=== PATIENT | female | born 1980 | race Caucasian/White ===

== ENCOUNTER → 2016-08-01 | Day surgery (SDC) | payer OTHER ==
[2016-07-21 15:36] VITALS: BMI 31.0
[~2016-08-01] VITALS: Ht 152.4 cm; Wt 72.7 kg
[~2016-08-01] MED LIST: BCPILLS PO; LIDOCAINE HCL 2% 2 ML VIAL (20MG/ML) ONE; PROPOFOL IV EMULSION 10 MG/ML 20 ML VIAL IV ONE; PSYL48.59 PO; SODIUM CHLORIDE 0.9% 500ML 500 ML IV ONE
[2016-08-01 08:41] VITALS: Ht 152.4 cm; Wt 72.7 kg
--- NOTE | 2016-08-01 09:45 | Endo History and Physical ---
History & Physical Date of Service: Aug 01, 2016. Chief Complaint: CHANGE IN BOWEL HABITS, ABD PAIN Referring Physician: DR. THOMPSON History of Present Illness 36 yo CF who presents for colonoscopy secondary to change in bowel habits and abdominal pain. Past Surgical History Hx Cardiac Surgery: No Hx Internal Defibrillator: No Hx Pacemaker: No Hx Abdominal Surgery: No Hx of Implantable Prosthesis: No Hx Post-Op Nausea and Vomiting: No Hx Cancer Surgery: No Hx Thoracic Surgery: No Hx Orthopedic: No Hx Urinary Tract Surgery: No Family History None Social History Smoking Status: Never Smoker Hx Substance Use: No Hx Alcohol Use: Yes (OCCASSIONALLY) Allergies Coded Allergies: Vortioxetine (Verified Allergy, Unknown, ITCHING, 08/01/16) Current Medications Reported Home Medications Medications Dose Route/Sig Max Daily Dose Days Date Category Dose Instructions Metamucil (Psyllium) 48.57 % Pow 1 Dose PO QAM 07/21/16 Reported NEW ORDER Control Pills (Miscellaneous) Tab 1 Tab PO QPM 07/21/16 Reported Vital Signs Weight (Kilograms): 72.73 Height (Feet): 5 Height (Inches): 0 Date Time Temp Pulse Resp B/P Pulse Ox O2 Delivery O2 Flow Rate FiO2 08/01/16 08:50 36.8 86 24 140/81 97 Room Air Physical Exam General Appearance: WD/WN, no apparent distress Respiratory/Chest: Auscultation: breath sounds normal Cardiovascular: Heart Auscultation: RRR Abdomen: Bowel Sounds: normal Inspection & Palpation: soft, non-distended, no tenderness, guarding & rebound Assessment and Plan Assessment: 36 yo CF who presents for colonoscopy secondary to change in bowel habits and abdominal pain. Plan: Proceed with colonoscopy.
--- NOTE | 2016-08-01 10:05 | Discharge Instructions ---
Endoscopy Patient Instructions Date / Procedure(s) Performed Aug 01, 2016. Colonoscopy Allergy Information Coded Allergies: Vortioxetine (Verified Allergy, Unknown, ITCHING, 08/01/16) Discharge Date / Findings Aug 01, 2016. Random colon biopsies Internal hemorrhoids Medication Instructions OK to resume all medications today as prescribed Reported Home Medications Medications Dose Route/Sig Max Daily Dose Days Date Category Dose Instructions Metamucil (Psyllium) 48.57 % Pow 1 Dose PO QAM 07/21/16 Reported NEW ORDER Control Pills (Miscellaneous) Tab 1 Tab PO QPM 07/21/16 Reported Provider Instructions Activity Restrictions - No exercising or heavy lifting for 24 hours. - Do not drink alcohol the day of the procedure. - Do not drive a car or operate machinery until the day after the procedure. - Do not make any important decisions or sign important papers in 24 hours after the procedure. Following Day: - Return to full activity which may include returning to work/school. Diet Start your diet with liquids and light foods (jello, soup, juice, toast). Then eat your usual diet if not nauseated. Treatment For Common After Affects For mild abdominal pain, bloating, or excessive gas: - Rest - Eat lightly - Lie on right side Follow-Up Information Follow-up with DR. THOMPSON as scheduled Anesthesia Information What You Should Know You have had a procedure that required some medicine to reduce anxiety and discomfort. This treatment is called moderate sedation. After receiving the treatment, you may be sleepy, but you will be able to breathe on your own. The effects of the treatment may last for several hours. Follow these instructions along with Activity/Diet recommendations noted above: * Do NOT do anything where dizziness or clumsiness would be dangerous. * Rest quietly at home today, then you can be up and about tomorrow. * Have a responsible person stay with you the rest of today. * You may have had an I.V. today. If so, you may take the dressing off later today. Recommendations Call your doctor if: * Trouble breathing * Continuous vomiting for more than 24 hours * Temperature above 101 degrees * Severe abdominal pain or bloating * Pain not relieved by pain medicine ordered * There is increased drainage or redness from any incision * A large amount of rectal bleeding greater than 2-3 tablespoons. (If you had a polyp/s removed or have hemorrhoids, a small amount of blood - from the rectum is to be expected.) * You have any unanswered questions or concerns. IN THE EVENT OF A SERIOUS EMERGENCY, GO TO THE NEAREST EMERGENCY ROOM Your discharge instructions were prepared by provider Leonard Paredes. Patient Instructions Signature Page Anabel Ruiz Patient (or Guardian) Signature/Date: I have read and understand the instructions given to me by my caregivers. Caregiver/RN/Doctor Signature/Date: The above-named patient and/or guardian has received patient instructions on this date. + Original Patient Signature Page (only) stays with chart. Please make copy for patient.
--- NOTE | 2016-08-01 10:08 | GI REPORT ---
Procedure Date: 08/01/2016 9:14 AM Procedure: Colonoscopy Indications: Generalized abdominal pain, Change in bowel habits Medicines: Monitored Anesthesia Care Complications: No immediate complications. Estimated Blood Loss: Estimated blood loss: none. Procedure: Pre-Anesthesia Assessment: - Prior to the procedure, a History and Physical was performed, and patient medications and allergies were reviewed. The patient's tolerance of previous anesthesia was also reviewed. The risks and benefits of the procedure and the sedation options and risks were discussed with the patient. All questions were answered, and informed consent was obtained. Prior Anticoagulants: The patient has taken no previous anticoagulant or antiplatelet agents. ASA Grade Assessment: II - A patient with mild systemic disease. After reviewing the risks and benefits, the patient was deemed in satisfactory condition to undergo the procedure. After I obtained informed consent, the scope was passed under direct vision. Throughout the procedure, the patient's blood pressure, pulse, and oxygen saturations were monitored continuously. The Scope was introduced through the anus and advanced to the terminal ileum. The colonoscopy was performed without difficulty. The patient tolerated the procedure well. The quality of the bowel preparation was good. The terminal ileum, ileocecal valve, appendiceal orifice, and rectum were photographed. Findings: Non-bleeding internal hemorrhoids were found during retroflexion. The hemorrhoids were small. Several random biopsies were obtained with cold forceps for histology in the entire colon. Impression: - Non-bleeding internal hemorrhoids. - Several random biopsies were obtained in the entire colon. Recommendation: - Resume previous diet. - Continue present medications. - Repeat colonoscopy for surveillance based on pathology results. - Return to primary care physician as previously scheduled. Leonard Paredes, DO 08/01/2016 10:09:11 AM This report has been signed electronically. Note Initiated On: 08/01/2016 9:14 AM
[2016-08-01 10:35] VITALS: BP 150/99; PULSE 80; O2SAT 99
--- NOTE | 2016-08-01 10:52 | Anesthesiology Progress Note ---
Anesthesia Post Op Note Date & Time Aug 01, 2016 at 10:52 Vital Signs Pain Intensity: 0 Vital Signs Past 12 Hours Date Time Temp Pulse Resp B/P Pulse Ox O2 Delivery O2 Flow Rate FiO2 08/01/16 10:35 80 16 150/99 99 Room Air 08/01/16 10:20 84 16 148/91 98 Room Air 08/01/16 10:04 76 16 124/76 97 Room Air 08/01/16 08:50 36.8 86 24 140/81 97 Room Air Notes Mental Status: alert / awake / arousable, participated in evaluation Pt Amnestic to Procedure: Yes Nausea / Vomiting: adequately controlled Pain: adequately controlled Airway Patency, RR, SpO2: stable & adequate BP & HR: stable & adequate Hydration State: stable & adequate Anesthetic Complications: no major complications apparent
== END | disposition home or self-care (01) ==
LOC: C.GI 08:18
PROVIDERS: ATTEND Internal Medicine
DX: R10.84 Generalized abdominal pain (principal); R19.4 Change in bowel habit; K64.8 Other hemorrhoids; Z79.3 Long term (current) use of hormonal contraceptives; Z68.31 Body mass index [BMI] 31.0-31.9, adult; E66.9 Obesity, unspecified

== ENCOUNTER 2024-08-11 08:32 | Observation (INO) ==
--- NOTE | 2024-08-11 09:13 | History & Physical Bridge Note ---
Date of Service August 11, 2024 History & Physical Bridge Note I have examined the patient, reviewed the History & Physical and in the interval since the performance of the History & Physical I have noted the following changes of clinical significance: no changes noted
--- NOTE | 2024-08-11 09:14 | Pre Anesthesia Assessment ---
Date of Service August 11, 2024 Pre Sedation Assessment Vital Signs Temp Pulse Resp BP Pulse Ox O2 Del Method 08/11/24 08:38 98.1 F 75 16 102/76 95 Room Air Cardiovascular + regular rate Respiratory + respiratory effort normal Pre-Sedation Airway Assessment Smoking Status: Never smoker Hx Sleep Apnea: No Short, Thick Neck: No Thyromental Distance: > or= 3.5 Finger Breadths Oral Cavity: + WNL Mallampati Class: II ASA: ASA3 NPO Status Date of Last Intake of Fluids: 08/11/24 Time of Last Intake of Fluids: 07:00 Date of Last Intake of Solid Food: 08/10/24 Time of Last Intake of Solid Foods: 20:00 Procedure Planning Contraindications for Sedation: none Current Medications Reviewed: Yes Notes The planned sedation has been discussed with the patient. Informed Consent was obtained. I have identified the patient, determined the appropriateness of sedation and have assessed the patient immediately prior to the procedure. All medicine(s) and interventions are by my order.
[2024-08-11] MEDS: fentaNYL citrate PF 100 MCG/2 ML VIAL ONE (10:06)
[2024-08-11] MEDS: HEPARIN (PORCINE) 1000 UNIT/ML 10 ML (CATH LAB USE ONLY) ONE (10:06)
[2024-08-11] MEDS: MIDAZOLAM HCL 1 MG/ML 2ML VIAL ONE (10:06)
[2024-08-11] MEDS: OPTIRAY 350 ONE (10:07)
[2024-08-11] MEDS: niCARdipine 2,000 MCG/20 ML SYR ONE (10:08)
[2024-08-11] MEDS: NITROGLYCERIN/D5W 100MCG/ML 20ML SYR ONE (10:09)
--- NOTE | 2024-08-11 10:53 | Post Anesthesia Assessment ---
Date of Service August 11, 2024 Post Sedation Assessment Vital Signs Temp Pulse Resp BP Pulse Ox O2 Del Method 08/11/24 10:45 74 16 113/74 95 Room Air 08/11/24 10:30 78 16 119/75 95 Room Air 08/11/24 10:15 88 16 113/72 95 Room Air 08/11/24 08:38 98.1 F 75 16 102/76 95 Room Air Recovery Score Activity: Moves 4 extremities Respiration: Deep Breath/Cough Circulation: +/-20% PreAnes Value Consciousness: Fully Awake Oxygen Saturation: > 92% On Room Air Post Anesthesia Score: 10 Discharge Sedation Level of Care: Fast Track Phase II Post Sedation Plan On clinical assessment, the patient appears to have tolerated the sedation without complications. Patient is recovering as anticipated. Patient will continue to be monitored by nursing and may be discharged when sedation discharge criteria are met per below protocol. Upon Completions of procedure up to 15 minutes continue every 5 minute vital signs and the P.A.R. score; then discharge to a Phase I or Fast Track to Phase II per the following guidelines: * Discharge Patient to appropriate Phase II area if PAR is 8 or greater or return to pre- procedure baseline. The post - procedure orders will be as di rected. * If PAR score is less than 8 or not return to pre-procedure baseline then patient will follow Phase I monitoring till PAR is reached for Phase II. The Phase I may be done in procedure room or may call to secure a Phase I area. * If naloxone or flumazenil are used for reversal, hold in Phase I for continued monitoring from when last reversal dose was given for a minimum of 60 minutes or longer pending the nurse and/or physician discretion of patient condition before discharge to Phase II. Please call the Sedation Physician to re-evaluate and complete post-note for discharge to Phase II area. Do NOT discharge from procedure sedation or Phase 1 until post- sedation evaluation note is complete by procedure /sedation MD Sedation Discharge Instructions to be given to the patient at discharge to home.
--- NOTE | 2024-08-11 10:56 | Cardiac Catheterization ---
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 30 to 40% late mid stenosis at takeoff of D3. Distal vessel without significant disease is wraps around apex. Small D2 with 50% ostial. Circumflex -medium caliber, diffuse proximal to distal disease up to 90% just prior to OM3. OM3 and left PLB without significant disease. RCA -dominant, large caliber, 60-70% mid RCA, 95% distal stenosis at takeoff of RPDA. 90% ostial stenosis of small to medium RPDA. Large PAV/PLB without significant disease. LVEDP -14 Arterial Closure: TR band Summary: 1. Severe multivessel coronary artery disease -98% mid LAD with ESTELA II distal flow 60-70% mid RCA, 95% distal RCA at takeoff of RPDA. 90% ostial RPDA Diffuse up to 90% proximal to distal circumflex 2. Normal intracardiac filling pressure Recommendations: With severe three-vessel CAD including almost subtotal mid LAD with sluggish distal flow recommend inpatient CABG evaluation. Plan to transfer to [facility] for cardiac surgery evaluation. Hemodynamics Rest Ao:: 95/58 Final Ao: 96/62 LV: 94/14 Recommendations Recommendations: CABG Radiation Exposure (mGy) 625 Contrast (mls) 35 Anesthesia Moderate [id number] Procedural Complication(s) None Disposition Metal Treater Holding/Recovery I attest to the content of the Intraoperative Record and any orders documented therein. Any exceptions are noted below. [facility] Card Cath Procedure Codes Cardiac Catheterization Procedure 1: Cardiovascular Cath Procedures: 30393 Coronaries and LHC (+/-LV) Moderate Sedation Procedure 1: Sedation/Anesthesia: 27870 Mod Sedation by the same physician;Init15 Min Child Age 5 & Up PG Care Time/CCT Total # of Minutes Spent Total Time Spent with Patient: Total time spent is greater than 50% in coordination of care (as documented) at patient's floor/unit and/or counseling patient:
[2024-08-11] MEDS ORDERED: ONDANSETRON INJ 2 MG/ML 2 ML VIAL IV PRN (12:34)
[2024-08-11] MEDS ORDERED: NITROGLYCERIN SL 0.4 MG/TAB TAB SL PRN (12:34)
[2024-08-11] MEDS ORDERED: ESZOPICLONE 1 MG TAB PO PRN (12:35)
[2024-08-11] MEDS ORDERED: traZODone HCL 50 MG TAB PO PRN (12:35)
[2024-08-11] MEDS: HEPARIN 25000 UNIT/500 ML D5W 25,000 UNITS/500 ML BAG IV SCH (14:15)
[2024-08-11] MEDS: Heparin IV Adult Wt-Based Low-Dose *NO* INITIAL Bolus Protocol IV STA (14:35)
[2024-08-11] MEDS: HEPARIN 25000 UNIT/500 ML D5W IV ONE (17:23)
--- NOTE | 2024-08-11 17:45 | Discharge Summary ---
Date of Service August 11, 2024 Admission HPI Per Admitting Provider Ms. Ruiz is a very pleasant 44-year-old woman with a history of hypertension, dyslipidemia, class I obesity and significant family history of premature CAD (father, paternal uncle, paternal grandfather with MIs in 40s) referred for cardiac catheterization in the setting of abnormal stress test. Progressive exertional chest/jaw pain over months. Now with occasional chest symptoms at rest. Stress echo 08/01/2024 showed rest EF 60% with mild LVH, no significant valvular disease. Exercised for 4: 30, achieved 6.9 METS with reproduced chest/jaw pain that lasted 2 minutes into recovery. Had inferior ST depressions in inferior leads with exercise-induced apical hypokinesis. Discharge Data Procedures Performed Operation Date: 08/11/24 09:30 Actual Procedures p Cineradiography w/Routine Exam - Dontrell Nguyen MD p Cath, Left with Cors and Vent - Dontrell Nguyen MD Hospital Course (1) Multi-vessel coronary artery stenosis: Plan Underwent cardiac catheterization via right radial artery without complication. Found to have severe three-vessel disease: -98% mid LAD with ESTELA II distal flow 60-70% mid RCA, 95% distal RCA at takeoff of RPDA. 90% ostial RPDA Diffuse up to 90% proximal to distal circumflex With severe three-vessel CAD including almost subtotal mid LAD with sluggish distal flow inpatient CABG evaluation was recommended. Case discussed with Dr. Negron and Dr. España at [facility] who agreed to accept patient in transfer for discussion of revascularization options and possible CABG. While awaiting bed at [facility] was admitted to telemetry. Remained chest pain- free, hemodynamically and electrically stable on home meds and heparin infusion. Following revascularization follow-up with Dr. Campa an an outpatient. Coding Level of Care Code 96173 IN/OBS DISCH 30 MIN/LESS Diagnoses Multi-vessel coronary artery stenosis I25.10
[2024-08-11] MEDS: HEPARIN SOD (PORCINE) 1000 UNIT/ML IV ONE (22:14)
[2024-08-12 07:47] LABS: ANTI-Xa, UFH(UnfractionatedHep 0.12 IU/ml (0.3-0.7)
[2024-08-12] MEDS: hydroCHLOROthiazide 25 MG TAB PO SCH (08:16)
[2024-08-12] MEDS: LOSARTAN POTASSIUM 25 MG TAB PO SCH (08:16)
[2024-08-12] MEDS: METOPROLOL SUCC 50MG EXT REL TAB PO SCH (08:16)
[2024-08-12] MEDS: CHOLECALCIFEROL 25 MCG (1000 UNITS) TAB PO SCH (08:16)
[2024-08-12] MEDS: ASPIRIN 81 MG ECTAB PO SCH (08:16)
[2024-08-12] MEDS: ROSUVASTATIN CALCIUM 20 MG TAB PO SCH (08:16)
[2024-08-12] MEDS: FLUoxetine HCL 10 MG CAP PO SCH (08:16)
[2024-08-12] MEDS: HEPARIN SOD (PORCINE) 1000 UNIT/ML IV ONE ×2 (09:07→16:33)
[2024-08-12 15:31] LABS: ANTI-Xa, UFH(UnfractionatedHep 0.19 IU/ml (0.3-0.7)
--- NOTE | 2024-08-12 17:49 | Cardiology Progress Note ---
Date of Service August 12, 2024 Assessment & Plan (1) Multi-vessel coronary artery stenosis: Plan: 98% mid LAD, 95% distal RCA/RPDA, 90% diffuse mid to distal circumflex 2. Hypertension 3. Dyslipidemia 4. Family history of premature CAD Stable from a cardiac standpoint Remains chest pain-free, hemodynamically and electrically stable. On exam no signs of heart failure. No apparent access site complications Still awaiting transfer to [facility] for CABG. Hopefully will have a bed tonight. Continue heparin infusion, aspirin. No change to current antihypertensives, statin. Admission and Anticipated Discharge Date Admission Date: August 11, 2024 Subjective Feeling well. No chest pain. No other new symptoms. Telemetry reviewedno events Review of Systems Review of Systems: All systems reviewed & are unremarkable except as noted in HPI & below Physical Exam Physical Exam: General: Comfortable HEENT: Sclerae anicteric Lungs: Clear to auscultation bilaterally, no crackles or wheezes Cardiac: Regular rate and rhythm, no murmurs. Vascular: Right radial artery access site with no ecchymosis, hematoma. Distal pulse and sensation intact. Abdomen: Soft, nontender Extremities: Well perfused, no peripheral edema Neuro: Nonfocal Psych: Alert orient x3, normal affect and mood Results & Data Vital Signs (Past 12 Hours) Vital Signs Temp Pulse Resp BP Pulse Ox O2 Del Method 08/12/24 16:20 98.2 F 88 18 141/69 H 96 Room Air 08/12/24 10:09 Room Air 08/12/24 07:54 98.2 F 97 H 20 135/72 97 Room Air PG Care Time/CCT Total # of Minutes Spent Total Time Spent with Patient: Total time spent is greater than 50% in coordination of care (as documented) at patient's floor/unit and/or counseling patient: Coding Level of Care Code 61751 SUB INP/OBS CARE 2/35MIN Diagnoses Multi-vessel coronary artery stenosis I25.10
[2024-08-12 23:31] LABS: ANTI-Xa, UFH(UnfractionatedHep 0.22 IU/ml (0.3-0.7)
[2024-08-13 06:47] LABS: ANTI-Xa, UFH(UnfractionatedHep 0.23 IU/ml (0.3-0.7)
--- NOTE | 2024-08-13 10:06 | Cardiology Progress Note ---
Date of Service August 13, 2024 Assessment & Plan (1) Multi-vessel coronary artery stenosis: Plan: 98% mid LAD, 95% distal RCA/RPDA, 90% diffuse mid to distal circumflex 2. Hypertension 3. Dyslipidemia 4. Family history of premature CAD Stable from a cardiac standpoint Remains chest pain-free, hemodynamically and electrically stable. On exam no signs of heart failure. No apparent access site complications Still awaiting transfer to [facility] for CABG. Hopefully will have a bed today. Continue heparin infusion, aspirin. No change to current antihypertensives, statin. Admission and Anticipated Discharge Date Admission Date: August 11, 2024 Subjective Feeling well. No chest pain. Mild back pain, thinks secondary to hospital bed Telemetry reviewedno events Review of Systems Review of Systems: All systems reviewed & are unremarkable except as noted in HPI & below Physical Exam Physical Exam: General: Comfortable HEENT: Sclerae anicteric Lungs: Clear to auscultation bilaterally, no crackles or wheezes Cardiac: Regular rate and rhythm, no murmurs. Vascular: Right radial artery access site with no ecchymosis, hematoma. Distal pulse and sensation intact. Abdomen: Soft, nontender Extremities: Well perfused, no peripheral edema Neuro: Nonfocal Psych: Alert orient x3, normal affect and mood Results & Data Vital Signs (Past 12 Hours) Vital Signs Temp Pulse Resp BP Pulse Ox O2 Del Method 08/13/24 07:30 98.6 F 68 18 127/80 97 Room Air 08/13/24 03:20 98.1 F 85 16 135/83 99 Room Air 08/12/24 23:23 98.1 F 79 19 128/82 97 Room Air PG Care Time/CCT Total # of Minutes Spent Total Time Spent with Patient: Total time spent is greater than 50% in coordination of care (as documented) at patient's floor/unit and/or counseling patient: Coding Level of Care Code 72598 SUB INP/OBS CARE 2/35MIN Diagnoses Multi-vessel coronary artery stenosis I25.10
[2024-08-13 10:44] VITALS: PULSE 87; RESP 16; TEMP 98.4; O2SAT 96
[2024-08-13 12:22] VITALS: BP 127/80
== END 2024-08-13 12:00 | disposition short-term general hospital (02) ==
LOC: CC 08:32 → INTOOBSV 12:33 → 2S 12:33